=== PATIENT | female | born 1985 | race Caucasian/White ===

== ENCOUNTER 2021-06-04 16:05 | Emergency (ER) | payer OTHER, SELFPAY ==
--- NOTE | ~2021-06-04 | CT_ITS ---
EXAMINATION: CT ANGIOGRAM OF THE CHEST WITH AND WITHOUT CONTRAST (CT PULMONARY ANGIOGRAM FOR PE) CLINICAL INFORMATION: Reason for Exam tachy, elevated dimer COMPARISON: None TECHNIQUE: Prior to contrast administration, noncontrast localization images were obtained. Subsequently, multidetector volumetric imaging was performed from the thoracic inlet to below the diaphragms following the administration of 65 mL Omnipaque 350 intravenous contrast. No contrast reaction reported Sagittal, coronal, and MIP oblique sagittal reformatted images were obtained on the CT workstation, uploaded to PACS, and reviewed. This CT examination was performed using dose optimization techniques as appropriate, variously including the following: *Automated exposure control *Adjustment of mA and/or kV according to patient size (this includes techniques or standardized protocols for targeted exams where dose is matched to indication/reason for exam; i.e. extremities or head) *Use of iterative reconstruction technique Total exam dose-length product 328 mGy-cm FINDINGS: QUALITY OF STUDY/CONTRAST BOLUS: Satisfactory. PULMONARY ARTERIES: No central or segmental pulmonary emboli. THORACIC AORTA: No aneurysm or dissection. LUNG: No focal consolidation, nodules or masses. PLEURA: No pleural effusion or pneumothorax. MEDIASTINUM: The visualized thyroid gland is unremarkable. There are subcentimeter mediastinal lymph nodes within the range of normal variation. Cardiac size is within normal limits; no pericardial effusion. No evidence of septal bowing or right heart strain. CHEST WALL/AXILLA: Asymmetrically prominent left axillary lymph nodes are noted, which appear to retain normal morphology. OSSEOUS STRUCTURES: No acute or suspicious osseous abnormality. UPPER ABDOMEN: There is an approximately 4 cm lateral right hepatic lobe lesion with some peripheral enhancement, suggestive of a hemangioma. No reflux of contrast into the hepatic veins to suggest elevated right heart pressures. CT/CT angio chest PE protocol IMPRESSION: 1. No pulmonary embolus identified. 2. Asymmetrically prominent left axillary lymph nodes. These may be reactive, such as if there has been recent vaccine administration. Clinical correlation/follow-up recommended. 3. Peripherally enhancing right hepatic lobe lesion measuring approximately 4 cm, suggestive of a hemangioma. This would be more definitively assessed with dynamic liver MRI. VTE: negative
--- NOTE | 2021-06-04 16:20 | ECG_ITS ---
Test Reason : palpitation Blood Pressure : / mmHG Vent. Rate : 129 BPM Atrial Rate : 129 BPM P-R Int : 122 ms QRS Dur : 068 ms QT Int : 288 ms P-R-T Axes : 065 053 034 degrees QTc Int : 421 ms Sinus tachycardia Nonspecific T wave abnormality Abnormal ECG No previous ECGs available Referred By: Generic ED Physician Electronically Signed By:FEDERICO GREGORY MD
[2021-06-04 16:36] VITALS: BP 124/78; PULSE 138; RESP 18; TEMP 37.8; O2SAT 99; BMI 25.7
[2021-06-04 20:31] LABS: MANUAL DIFF FLAG NO
[2021-06-04 20:33] LABS: Basophils Percent Auto 0.5 % (0-2); Hematocrit 36.5 % (37-47); Hemoglobin 12.3 g/dl (12.0-16.0); Imm Gran Abs Auto 0.01 X10*3/uL (0.00-0.03); Imm Gran Pct Auto 0.2 % (0.0-0.4); Lymphocytes Absolute Auto 0.9 X10*3/uL (1.2-4.9); Lymphocytes Percent Auto 14.4 % (20-40); Mean Corpuscular HGB Conc 33.7 g/dl (31.0-35.0); Mean Corpuscular Hemoglobin 26.2 pg (27.0-33.0); Mean Corpuscular Volume 77.8 fL (80-98); Mean Platelet Volume 9.2 fL (9.4-12.3); Monocytes Absolute Auto 0.3 X10*3/uL (0.1-1.2); Monocytes Percent Auto 4.4 % (2-11); Neutrophils Percent Auto 80.5 % (45-73); Platelet Count 295 X10*3/uL (160-400); Red Blood Count 4.69 X10*6/uL (4.20-5.50); Red Cell Distribution Width 14.5 % (11.0-16.0); White Blood Count 6.2 X10*3/uL (4.8-10.8)
[2021-06-04 20:50] LABS: Troponin-I High Sensitivity < 3.5 ng/L (<3.5-17.0)
[2021-06-04 20:52] LABS: Anion Gap 16 (12-20); Blood Urea Nitrogen 11 mg/dL (9-16); Calcium 9.5 mg/dL (8.4-10.2); Carbon Dioxide 20 mmol/L (22-29); Chloride 105 mmol/L (96-108); Creatinine Clr Calc Pharmacy 75.1; Estimated Glomerular Filt Rate > 60; Glucose Random 137 mg/dL (60-115); Potassium 4.1 mmol/L (3.3-5.1); Sodium 137 mmol/L (135-145)
[2021-06-04] MEDS: Acetaminophen 325 MG TABLET 650 MG PO (21:39)
[2021-06-04 21:46] VITALS: BP 103/61; PULSE 132; RESP 20; TEMP 36.9; O2SAT 99
--- NOTE | 2021-06-04 21:47 | PC.NURSE ---
patient came to triage requesting tylenol, pt medicated with tylenol for body aches, covid swab performed due to pt now stating she has body aches.
[2021-06-04 22:03] LABS: COVID-19 Test Negative (Negative)
[2021-06-04 22:33] LABS: TSH reflex Free T4 1.57 uIU/mL (0.32-4.0)
[2021-06-04 22:52] LABS: Alanine Aminotransferase 11 U/L (0-31); Albumin Level 4.7 g/dL (3.5-5.0); Alkaline Phosphatase 61 U/L (39-117); Aspartate Amino Transferase 16 U/L (5-31); Bilirubin Direct 0.2 mg/dL (0.0-0.5); Bilirubin Total 0.3 mg/dL (0.0-1.0); Total Protein 8.1 g/dL (6.5-8.0)
--- NOTE | 2021-06-04 22:55 | ED.GENADULT ---
HPI - General Adult General Chief complaint: Arrhythmia/Palpitations <Germaine Rae NP - Last Filed: 06/05/21 02:09> Stated complaint: palpitations <Germaine Rae NP - Last Filed: 06/05/21 02:09> Time Seen by Provider: 06/04/21 21:57 <Germaine Rae NP - Last Filed: 06/05/21 02:09> Source: patient <Germaine Rae NP - Last Filed: 06/05/21 02:09> Mode of arrival: ambulatory <ALICE Kaplan Last Filed: 06/05/21 02:09> Limitations: no limitations <ALICE Kaplan Last Filed: 06/05/21 02:09> History of Present Illness HPI narrative: 35 yo female previously healthy here with complaints of an increase in her heart rate noted since last . Patient tells me that she has an Apple watch and she was alerted on her watch that her heart rate was fast at 120-130. She did not really feel like she was having palpitations or shortness of breath or chest pain. She tells me that she noticed this while she was rest off her watch. She has been monitoring it daily since this 1st event and has been elevated. It seems to occur at rest. She also does have it when she is moving around. There is no complaints of chest pain, shortness of breath, leg swelling or pain. Of note patient did receive her 2nd COVID vaccine last night and has had some subjective fevers and chills since receiving it. No history of DVT or PE. No recent travel or sick contact <Germaine Rae NP - Last Filed: 06/05/21 02:09> Related Data Allergies/adverse reactions: Allergies Allergy/AdvReac Type Severity Reaction Status Date / Time No Known Allergies Allergy Verified 06/04/21 16:35 <ALICE Kaplan Last Filed: 06/05/21 02:09> Review of Systems Review of Systems: Yes all other systems are reviewed and are negative <ALICE Kaplan Last Filed: 06/05/21 02:09> Constitutional: Constitutional: Reports no additional constitutional complaints, Denies body ache(s), Denies chills, Denies fever(s), Denies headache(s) and Denies weakness <Germaine Rae NP - Last Filed: 06/05/21 02:09> Eyes: Eyes: Reports no additional eye complaints and Denies change in vision <Germaine Rae [employer] SUPERVIS[employer] - Last Filed: 06/05/21 02:09> ENT: Reports system reviewed and no additional complaints, except as documented, Denies dizziness, Denies headache(s), Denies nasal congestion, Denies nasal discharge and Denies neck pain <Germaine Rae [employer] SUPERVIS[employer] - Last Filed: 06/05/21 02:09> Cardiovascular: Cardiovascular: Reports no additional cardiovascular complaints, Denies chest pain, Denies leg edema, Reports palpitations and Denies dyspnea <Germaine Rae NP - Last Filed: 06/05/21 02:09> Respiratory: Respiratory: Reports no additional respiratory complaints, Denies cough and Denies dyspnea <Germaine Rae NP - Last Filed: 06/05/21 02:09> Gastrointestinal: Gastrointestinal: Reports no additional gastrointestinal complaints, Denies abdominal pain, Denies diarrhea, Denies nausea and Denies vomiting <Germaine Rae NP - Last Filed: 06/05/21 02:09> Genitourinary: Genitourinary: Reports no additional female genitourinary complaints and Denies urinary incontinence <Germaine Rae [employer]ER SUPERVISOR - Last Filed: 06/05/21 02:09> Musculoskeletal: Musculoskeletal: Reports no additional musculoskeletal complaints, Denies back pain, Denies arthralgias, Denies joint swelling, Denies neck pain, Denies numbness and Denies tingling <Germaine Rae NP - Last Filed: 06/05/21 02:09> Integumentary/Breasts: Skin/Breast: Reports system reviewed and no additional complaints, except as docu and Denies rash <Germaine Rae NP - Last Filed: 06/05/21 02:09> Neurologic: Reports system reviewed and no additional complaints, except as documented, Denies Abnormal speech present, Denies dizziness, Denies headache(s), Denies numbness, Denies tingling and Denies weakness <Germaine Rae NP - Last Filed: 06/05/21 02:09> Endocrine: Endocrine: Reports palpitations <Germaine Rae NP - Last Filed: 06/05/21 02:09> [facility] Past Medical History Attestation statement: The following information was validated with the patient. <Germaine Rae NP - Last Filed: 06/05/21 02:09> Source: old records reviewed and nursing notes reviewed <Germaine Rae NP - Last Filed: 06/05/21 02:09> Medical History: Medical History No pertinent past medical history <Germaine Rae NP - Last Filed: 06/05/21 02:09> Social History Social History: Social History Alcohol intake: current Alcohol intake frequency: holidays/special occasions only Patient Tobacco Use Status: Never used Tobacco Use of substances other than those prescribed or required for medical reasons: No Advance Directives: No Advance Directives Information Provided: No Patient : No <Germaine Rae NP - Last Filed: 06/05/21 02:09> Physical Exam Vital Signs: Vital Signs: Last Vital Signs Temp 99.0 F 06/04/21 23:55 Pulse 96 06/05/21 02:35 Resp 18 06/05/21 02:35 BP 108/51 L 06/05/21 02:35 Pulse Ox 100 06/05/21 02:35 Body Mass Index 25.7 <Germaine Rae NP - Last Filed: 06/05/21 02:09> Vital Signs: Last Vital Signs Temp 99.0 F 06/04/21 23:55 Pulse 96 06/05/21 02:35 Resp 18 06/05/21 02:35 BP 108/51 L 06/05/21 02:35 Pulse Ox 100 06/05/21 02:35 Body Mass Index 25.7 <Susana Musa MD - Last Filed: 06/05/21 04:35> Const: General: cooperative, healthy appearing, comfortable and no acute distress <Germaine Rae NP - Last Filed: 06/05/21 02:09> Orientation/consciousness: patient oriented x3 <Germaine Rae NP - Last Filed: 06/05/21 02:09> Limitations: no limitations <Germaine Rae NP - Last Filed: 06/05/21 02:09> HENMT: Head: Yes normal to inspection <Germaine Rae NP - Last Filed: 06/05/21 02:09> Ears: hearing grossly normal bilaterally <Germaine Rae NP - Last Filed: 06/05/21 02:09> General nose exam: Normal external nose present <Germaine Rae NP - Last Filed: 06/05/21 02:09> Face and sinus: Yes normal facial exam <Germaine Rae NP - Last Filed: 06/05/21 02:09> Mouth: Normal oral and palatal mucosa present <Germaine Rae NP - Last Filed: 06/05/21 02:09> Throat: Yes posterior oropharynx normal <Germaine Rae NP - Last Filed: 06/05/21 02:09> Eyes: General: appearance normal, both eyes and all related structures <Germaine Rae NP - Last Filed: 06/05/21 02:09> Pupils: Equal, round and reactive pupils present <Germaine Rae NP - Last Filed: 06/05/21 02:09> Neck: Neck: Yes normal visual inspection <Germaine Rae NP - Last Filed: 06/05/21 02:09> Chest: Chest palpation & inspection: normal inspection of the chest <Germaine Rae NP - Last Filed: 06/05/21 02:09> Resp: Effort & Inspection: normal respiratory effort <Germaine Rae NP - Last Filed: 06/05/21 02:09> Auscultation: clear to auscultation bilaterally <Germaine Rae NP - Last Filed: 06/05/21 02:09> Cardio: Rate: tachycardic (129) <Germaine Rae NP - Last Filed: 06/05/21 02:09> Rhythm: regular rhythm <Germaine Rae NP - Last Filed: 06/05/21 02:09> Peripheral pulses: Peripheral pulses 2+ throughout <Germaine Rae NP - Last Filed: 06/05/21 02:09> GI: Inspection: Yes normal to inspection <Germaine Rae NP - Last Filed: 06/05/21 02:09> Palpation (GI): Soft to palpation and nontender <Germaine Rae [employer] IN[employer] SUPERVISOR - Last Filed: 06/05/21 02:09> Auscultation: normal bowel sounds <Germaine Rae NP - Last Filed: 06/05/21 02:09> Back/Spine/Pelvis: Thoracic/Lumbar Spine: thoracic and lumbar spine normal to inspection <Germaine Rae NP - Last Filed: 06/05/21 02:09> Skin: General skin exam: no rashes or lesions noted <Germaine Rae [employer] IN[employer] SUPERVISOR - Last Filed: 06/05/21 02:09> Neuro: General: patient oriented x3, no focal motor deficits and normal sensation to monofilament <Germaine Rae NP - Last Filed: 06/05/21 02:09> Cranial nerves: Yes Equal, round and reactive pupils present <Germaine Rae NP - Last Filed: 06/05/21 02:09> Cognition (Neuro): normal cognition <Germaine Rae NP - Last Filed: 06/05/21 02:09> Speech: No Abnormal speech present <Germaine Rae NP - Last Filed: 06/05/21 02:09> Gait exam (Neuro): Normal gait present <Germaine Rae NP - Last Filed: 06/05/21 02:09> Motor exam (neuro): 5/5 motor strength present throughout <Germaine Rae NP - Last Filed: 06/05/21 02:09> Extrem: General: Yes normal to inspection, Yes no pedal edema and Yes no calf tenderness <Germaine Rae NP - Last Filed: 06/05/21 02:09> Course Course Course Narrative: 35-year-old female here with complaints of fast heart rate noted since . Often times she does not feel like her heart was racing but her Apple watch notifies her. She has no shortness of breath or chest pain or leg swelling or pain. On arrival her heart rate is 132 sinus tachycardia on her EKG. Her exam otherwise is benign. Will check labs, orthostatics. 0100-orthostatics negative. Labs are unremarkable. The patient does have an indeterminate D-dimer but PERC score is 1 for tachycardia. No risk factors. No control recent travel. No clinical findings concerning for DVT. Less likely PE. After 1 L fluid her heart rate is now 106. However when a source the patient she felt warm to touch and she now has a temperature of 99.8 degrees. This is from receiving her COVID vaccine yesterday and not from infection. Offered Tylenol the patient took just a little while ago. Will give IV Toradol and normal saline bolus and reassess 0200-Sign out to Dr Musa pending improvement heart rate post fluids. <Germaine Rae [employer] IN[employer] SUPERVISOR - Last Filed: 06/05/21 02:09> 35-year-old female here with complaints of fast heart rate noted since . Often times she does not feel like her heart was racing but her Apple watch notifies her. She has no shortness of breath or chest pain or leg swelling or pain. On arrival her heart rate is 132 sinus tachycardia on her EKG. Her exam otherwise is benign. Will check labs, orthostatics. 0100-orthostatics negative. Labs are unremarkable. The patient does have an indeterminate D-dimer but PERC score is 1 for tachycardia. No risk factors. No control recent travel. No clinical findings concerning for DVT. Less likely PE. After 1 L fluid her heart rate is now 106. However when a source the patient she felt warm to touch and she now has a temperature of 99.8 degrees. This is from receiving her COVID vaccine yesterday and not from infection. Offered Tylenol the patient took just a little while ago. Will give IV Toradol and normal saline bolus and reassess 0200-Sign out to Dr Musa pending improvement heart rate post fluids. CT for PE negative. Patient will be discharged home. Heart rate improved to 98 <Susana Musa MD - Last Filed: 06/05/21 04:35> Medical Decision Making MDM Narrative Medical decision making narrative: Dehydration, arrhythmia, PE, thyroid <Germaine Rae NP - Last Filed: 06/05/21 02:09> Medical Records Medical records reviewed: Yes I reviewed the patient's medical records. <Germaine Rae NP - Last Filed: 06/05/21 02:09> Lab Data Lab results reviewed: Yes I reviewed the patient's lab results. <Germaine Rae NP - Last Filed: 06/05/21 02:09> Result diagrams: : 06/04/21 20:24 06/04/21 20:24 <Germaine Rae NP - Last Filed: 06/05/21 02:09> Labs: Lab Results 06/04/21 06/04/21 06/04/21 Range/Units 20:24 20:24 20:24 WBC 6.2 (4.8-10.8) X10*3/uL RBC 4.69 (4.20-5.50) X10*6/uL Hgb 12.3 (12.0-16.0) g/dl Hct 36.5 L (37-47) % MCV 77.8 L (80-98) fL MCH 26.2 L (27.0-33.0) pg MCHC 33.7 (31.0-35.0) g/dl RDW 14.5 (11.0-16.0) % Plt Count 295 (160-400) X10*3/uL MPV 9.2 L (9.4-12.3) fL Immature Gran % (Auto) 0.2 (0.0-0.4) % Neut % (Auto) 80.5 H (45-73) % Lymph % (Auto) 14.4 L (20-40) % [place] % (Auto) 4.4 (2-11) % Eos % (Auto) 0.0 (0-4) % Baso % (Auto) 0.5 (0-2) % Lymph # (Auto) 0.9 L (1.2-4.9) X10*3/uL [place] # (Auto) 0.3 (0.1-1.2) X10*3/uL Eos # (Auto) 0.0 (0.0-0.4) X10*3/uL Baso # (Auto) 0.0 (0.0-0.2) X10*3/uL Abs Immat Gran (auto) 0.01 (0.00-0.03) X10*3/uL Absolute Neuts (auto) 5.0 (2.0-8.3) X10*3/uL Absolute Nucleated RBC 0.000 (0.0-0.012) X10*3/uL Nucleated RBC % (auto) 0.0 (0.0-0.2) /100WBC PT (9.9-13.0) SEC INR (0.9-1.1) D-Dimer NG/ML Sodium 137 (135-145) mmol/L Potassium 4.1 (3.3-5.1) mmol/L Chloride 105 (96-108) mmol/L Carbon Dioxide 20 L (22-29) mmol/L Anion Gap 16 (12-20) BUN 11 (9-16) mg/dL Creatinine 0.97 (0.5-1.4) mg/dL Estim Creat Clear Calc 75.1 Estimated GFR > 60 Random Glucose 137 H (60-115) mg/dL Calcium 9.5 (8.4-10.2) mg/dL Total Bilirubin 0.3 (0.0-1.0) mg/dL Direct Bilirubin 0.2 (0.0-0.5) mg/dL AST 16 (5-31) U/L ALT 11 (0-31) U/L Alkaline Phosphatase 61 (39-117) U/L Troponin I High Sens < 3.5 (<3.5-17.0) ng/L Total Protein 8.1 H (6.5-8.0) g/dL Albumin 4.7 (3.5-5.0) g/dL TSH 1.57 (0.32-4.0) uIU/mL Beta HCG, Quant < 2 mIU/mL COVID-19 ([facility]) (Negative) COVID-19 Clin Com 06/04/21 06/04/21 Range/Units 21:43 23:03 WBC (4.8-10.8) X10*3/uL RBC (4.20-5.50) X10*6/uL Hgb (12.0-16.0) g/dl Hct (37-47) % MCV (80-98) fL MCH (27.0-33.0) pg MCHC (31.0-35.0) g/dl RDW (11.0-16.0) % Plt Count (160-400) X10*3/uL MPV (9.4-12.3) fL Immature Gran % (Auto) (0.0-0.4) % Neut % (Auto) (45-73) % Lymph % (Auto) (20-40) % [place] % (Auto) (2-11) % Eos % (Auto) (0-4) % Baso % (Auto) (0-2) % Lymph # (Auto) (1.2-4.9) X10*3/uL [place] # (Auto) (0.1-1.2) X10*3/uL Eos # (Auto) (0.0-0.4) X10*3/uL Baso # (Auto) (0.0-0.2) X10*3/uL Abs Immat Gran (auto) (0.00-0.03) X10*3/uL Absolute Neuts (auto) (2.0-8.3) X10*3/uL Absolute Nucleated RBC (0.0-0.012) X10*3/uL Nucleated RBC % (auto) (0.0-0.2) /100WBC PT 12.6 (9.9-13.0) SEC INR 1.1 (0.9-1.1) D-Dimer 245 NG/ML Sodium (135-145) mmol/L Potassium (3.3-5.1) mmol/L Chloride (96-108) mmol/L Carbon Dioxide (22-29) mmol/L Anion Gap (12-20) BUN (9-16) mg/dL Creatinine (0.5-1.4) mg/dL Estim Creat Clear Calc Estimated GFR Random Glucose (60-115) mg/dL Calcium (8.4-10.2) mg/dL Total Bilirubin (0.0-1.0) mg/dL Direct Bilirubin (0.0-0.5) mg/dL AST (5-31) U/L ALT (0-31) U/L Alkaline Phosphatase (39-117) U/L Troponin I High Sens (<3.5-17.0) ng/L Total Protein (6.5-8.0) g/dL Albumin (3.5-5.0) g/dL TSH (0.32-4.0) uIU/mL Beta HCG, Quant mIU/mL COVID-19 ([facility]) Negative (Negative) COVID-19 Clin Com See Note <Germaine Rae, [employer] SUPERVISOR - Last Filed: 06/05/21 02:09> Lab Results 06/04/21 06/04/21 06/04/21 Range/Units 20:24 20:24 20:24 WBC 6.2 (4.8-10.8) X10*3/uL RBC 4.69 (4.20-5.50) X10*6/uL Hgb 12.3 (12.0-16.0) g/dl Hct 36.5 L (37-47) % MCV 77.8 L (80-98) fL MCH 26.2 L (27.0-33.0) pg MCHC 33.7 (31.0-35.0) g/dl RDW 14.5 (11.0-16.0) % Plt Count 295 (160-400) X10*3/uL MPV 9.2 L (9.4-12.3) fL Immature Gran % (Auto) 0.2 (0.0-0.4) % Neut % (Auto) 80.5 H (45-73) % Lymph % (Auto) 14.4 L (20-40) % [place] % (Auto) 4.4 (2-11) % Eos % (Auto) 0.0 (0-4) % Baso % (Auto) 0.5 (0-2) % Lymph # (Auto) 0.9 L (1.2-4.9) X10*3/uL [place] # (Auto) 0.3 (0.1-1.2) X10*3/uL Eos # (Auto) 0.0 (0.0-0.4) X10*3/uL Baso # (Auto) 0.0 (0.0-0.2) X10*3/uL Abs Immat Gran (auto) 0.01 (0.00-0.03) X10*3/uL Absolute Neuts (auto) 5.0 (2.0-8.3) X10*3/uL Absolute Nucleated RBC 0.000 (0.0-0.012) X10*3/uL Nucleated RBC % (auto) 0.0 (0.0-0.2) /100WBC PT (9.9-13.0) SEC INR (0.9-1.1) D-Dimer NG/ML Sodium 137 (135-145) mmol/L Potassium 4.1 (3.3-5.1) mmol/L Chloride 105 (96-108) mmol/L Carbon Dioxide 20 L (22-29) mmol/L Anion Gap 16 (12-20) BUN 11 (9-16) mg/dL Creatinine 0.97 (0.5-1.4) mg/dL Estim Creat Clear Calc 75.1 Estimated GFR > 60 Random Glucose 137 H (60-115) mg/dL Calcium 9.5 (8.4-10.2) mg/dL Total Bilirubin 0.3 (0.0-1.0) mg/dL Direct Bilirubin 0.2 (0.0-0.5) mg/dL AST 16 (5-31) U/L ALT 11 (0-31) U/L Alkaline Phosphatase 61 (39-117) U/L Troponin I High Sens < 3.5 (<3.5-17.0) ng/L Total Protein 8.1 H (6.5-8.0) g/dL Albumin 4.7 (3.5-5.0) g/dL TSH 1.57 (0.32-4.0) uIU/mL Beta HCG, Quant < 2 mIU/mL COVID-19 ([facility]) (Negative) COVID-19 Clin Com 06/04/21 06/04/21 Range/Units 21:43 23:03 WBC (4.8-10.8) X10*3/uL RBC (4.20-5.50) X10*6/uL Hgb (12.0-16.0) g/dl Hct (37-47) % MCV (80-98) fL MCH (27.0-33.0) pg MCHC (31.0-35.0) g/dl RDW (11.0-16.0) % Plt Count (160-400) X10*3/uL MPV (9.4-12.3) fL Immature Gran % (Auto) (0.0-0.4) % Neut % (Auto) (45-73) % Lymph % (Auto) (20-40) % [place] % (Auto) (2-11) % Eos % (Auto) (0-4) % Baso % (Auto) (0-2) % Lymph # (Auto) (1.2-4.9) X10*3/uL [place] # (Auto) (0.1-1.2) X10*3/uL Eos # (Auto) (0.0-0.4) X10*3/uL Baso # (Auto) (0.0-0.2) X10*3/uL Abs Immat Gran (auto) (0.00-0.03) X10*3/uL Absolute Neuts (auto) (2.0-8.3) X10*3/uL Absolute Nucleated RBC (0.0-0.012) X10*3/uL Nucleated RBC % (auto) (0.0-0.2) /100WBC PT 12.6 (9.9-13.0) SEC INR 1.1 (0.9-1.1) D-Dimer 245 NG/ML Sodium (135-145) mmol/L Potassium (3.3-5.1) mmol/L Chloride (96-108) mmol/L Carbon Dioxide (22-29) mmol/L Anion Gap (12-20) BUN (9-16) mg/dL Creatinine (0.5-1.4) mg/dL Estim Creat Clear Calc Estimated GFR Random Glucose (60-115) mg/dL Calcium (8.4-10.2) mg/dL Total Bilirubin (0.0-1.0) mg/dL Direct Bilirubin (0.0-0.5) mg/dL AST (5-31) U/L ALT (0-31) U/L Alkaline Phosphatase (39-117) U/L Troponin I High Sens (<3.5-17.0) ng/L Total Protein (6.5-8.0) g/dL Albumin (3.5-5.0) g/dL TSH (0.32-4.0) uIU/mL Beta HCG, Quant mIU/mL COVID-19 ([facility]) Negative (Negative) COVID-19 Clin Com See Note <Susana Musa MD - Last Filed: 06/05/21 04:35> Imaging Data CTA for PE: Radiologist's impression: TECHNIQUE: Prior to contrast administration, noncontrast localization images were obtained. ? Subsequently, multidetector volumetric imaging was performed from the thoracic inlet to below the diaphragms following the administration of 65 mL Omnipaque 350 intravenous contrast. No contrast reaction reported Sagittal, coronal, and MIP oblique sagittal reformatted images were obtained on the CT workstation, uploaded to PACS, and reviewed. This CT examination was performed using dose optimization techniques as appropriate, variously including the following: *Automated exposure control *Adjustment of mA and/or kV according to patient size (this includes techniques or standardized protocols for targeted exams where dose is matched to indication/reason for exam; i.e. extremities or head) *Use of iterative reconstruction technique Total exam dose-length product 328 mGy-cm FINDINGS: QUALITY OF STUDY/CONTRAST BOLUS: Satisfactory. PULMONARY ARTERIES: No central or segmental pulmonary emboli.? THORACIC AORTA: No aneurysm or dissection. LUNG: No focal consolidation, nodules or masses. PLEURA: No pleural effusion or pneumothorax. MEDIASTINUM: The visualized thyroid gland is unremarkable. There are subcentimeter mediastinal lymph nodes within the range of normal variation. Cardiac size is within normal limits; no pericardial effusion. No evidence of septal bowing or right heart strain. CHEST WALL/AXILLA: Asymmetrically prominent left axillary lymph nodes are noted, which appear to retain normal morphology. OSSEOUS STRUCTURES: No acute or suspicious osseous abnormality.? UPPER ABDOMEN: There is an approximately 4 cm lateral right hepatic lobe lesion with some peripheral enhancement, suggestive of a hemangioma. No reflux of contrast into the hepatic veins to suggest elevated right heart pressures. CT/CT angio chest PE protocol IMPRESSION: 1.? No pulmonary embolus identified. 2.? Asymmetrically prominent left axillary lymph nodes. These may be reactive, such as if there has been recent vaccine administration. Clinical correlation/follow-up recommended. 3.? Peripherally enhancing right hepatic lobe lesion measuring approximately 4 cm, suggestive of a hemangioma. This would be more definitively assessed with dynamic liver MRI. ? VTE: negative <Susana Musa MD - Last Filed: 06/05/21 04:35> ECG Data Attestation: I personally reviewed and interpreted this ECG as follows: <Germaine Rea NP - Last Filed: 06/05/21 02:09> Interpretation: Sinus tachycardia with a rate of 129, normal DE, normal QRS, normal QT <Germaine Rae NP - Last Filed: 06/05/21 02:09> Discharge Plan Discharge Clinical Impression: Tachycardia <Germaine Rae NP - Last Filed: 06/05/21 02:09> Patient Disposition: Home, Self-Care <Germaine Rae NP - Last Filed: 06/05/21 02:09> Instructions: Tachycardia (ED) <Germaine Rae NP - Last Filed: 06/05/21 02:09> Additional Instructions: Increase fluids, rest Take Motrin or Tylenol for pain or fever as needed <Germaine Rae NP - Last Filed: 06/05/21 02:09>
[2021-06-04] MEDS: 0.9 % Sodium Chloride 1,000 ML 999 ML IV ×2 (23:18→23:57)
[2021-06-04 23:19] LABS: INTERNATIONAL NORM RATIO 1.1 (0.9-1.1); Prothrombin Time 12.6 SEC (9.9-13.0)
[2021-06-04 23:21] LABS: D Dimer 245 NG/ML
--- NOTE | 2021-06-04 23:21 | PC.NURSE ---
pt a&o, no sob or chest pain. medicated per Oct. Iv line started. pt resting in hallway.
[2021-06-04 23:53] VITALS: BP 123/62; PULSE 106
[2021-06-04 23:54] VITALS: BP 117/74; BP 124/74; PULSE 104; PULSE 108
[2021-06-04 23:55] VITALS: BP 123/62; PULSE 106; RESP 18; TEMP 37.2; O2SAT 98
[2021-06-05] MEDS: Ketorolac Tromethamine 15 MG/ML VIAL 30 MG IVPUSH (01:00)
[2021-06-05] MEDS: 0.9 % Sodium Chloride 1,000 ML 999 ML IV (01:01)
--- NOTE | 2021-06-05 01:04 | PC.NURSE ---
medicated per mar.
[2021-06-05 02:35] VITALS: BP 108/51; PULSE 96; RESP 18; O2SAT 100
[2021-06-05 03:34] LABS: HCG Quantitative < 2 mIU/mL
--- NOTE | 2021-06-05 03:49 | PC.NURSE ---
pt being taken to Ct-scan.
[2021-06-05] MEDS: iohexoL 350 MG/ML 100 ML INFUS..BTL 65 ML IV (03:53)
[2021-06-05 05:22] VITALS: RESP 16
== END 2021-06-05 05:36 | disposition home or self-care (01) ==
PROVIDERS: Nurse Practitioner Family; Emergency Provider Emergency Medicine; PCP Nurse Practitioner Family
DX: R00.0 Tachycardia, unspecified (principal); Z20.822 Contact with and (suspected) exposure to COVID-19
CPT/HCPCS: 36415; 71275; 80048; 80076; 84443; 84484; 84702; 85025; 85379; 85610; 87635; 93005; 96360; 96361; 96374; 99285; J1885; Q9967